=== PATIENT | female | born 1995 | race Asian ===

== ENCOUNTER 2020-01-09 15:16 | Emergency (ER) | payer SELFPAY ==
[~2020-01-09] VITALS: Ht 165.1 cm; Wt 59.0 kg
[~2020-01-09 15:16] MED LIST: MOTRIN 800800 MG/TAB PO; NATURAL IRON65 MG; PERCOCET 325 MG1 TA2 PO; PRENATAL VITAMI1 TA3 PO; TYLENOL 325MG325 MG PO
[2020-01-09 15:29] VITALS: TEMP 98.3
[2020-01-09] MEDS ORDERED: AZO URINARY PAI95 MG (16:38)
[2020-01-09 16:49] LABS: COLLECTION METHOD CLEAN CATCH
[2020-01-09 16:58] LABS: MUCOUS Present /lpf; PH 5 (5-8); SQUAMOUS EPITHELIAL 0-2 /hpf; URINE APPEARANCE Cloudy; URINE BACTERIA Rare /hpf; URINE BILIRUBIN Negative (NEGATIVE); URINE BLOOD 3+ (NEGATIVE); URINE COLOR Amber; URINE GLUCOSE Negative (NEGATIVE); URINE KETONE Negative (NEGATIVE); URINE LEUKOCYTE ESTERASE 2+ (NEGATIVE); URINE NITRATE Negative (NEGATIVE); URINE PROTEIN(semi-quant) 2+ (NEGATIVE); URINE RBC >50 /hpf; URINE UROBILINOGEN Negative (NEGATIVE)
[2020-01-09] MEDS ORDERED: PYRIDIUM 100MG100 MG PO ×2 (18:30)
[2020-01-09] MEDS ORDERED: CEFTIN500 MG PO ×2 (18:30)
[2020-01-09 19:05] VITALS: BP 119/65; PULSE 87
[2020-01-10] MEDS ORDERED: PYRIDIUM 100MG100 MG PO (13:05)
[2020-01-10] MEDS ORDERED: CEFTIN500 MG PO (13:05)
== END 2020-01-09 19:05 | disposition home or self-care (01) ==
LOC: COL.ER 15:16
PROVIDERS: Emergency Medicine
DX: N39.0 Urinary tract infection, site not specified (principal); F17.210 Nicotine dependence, cigarettes, uncomplicated

== ENCOUNTER 2020-08-01 22:38 | Emergency (ER) | payer SELFPAY ==
[~2020-08-01] VITALS: Ht 165.1 cm; Wt 62.0 kg
[~2020-08-01 22:38] MED LIST changes: +AZO URINARY PAI95 MG; +CEFTIN500 MG PO; +PYRIDIUM 100MG100 MG PO
[2020-08-02 00:25] LABS: BASO % 0.4 % (0.0-2.0); GRAN # 3.8 (1.4-6.5); GRAN % 79.6 % (42.2-75.2); HEMATOCRIT 39.6 % (37.0-47.0); HEMOGLOBIN 13.2 g/dl (12.5-16.0); LYMPH # 0.6 (1.2-3.4); LYMPH % 13.2 % (20.0-51.0); MEAN CELL VOLUME 87 fl (80.0-100.0); MEAN CORPUSCULAR HEMOGLOBIN 29 pg (27.0-31.0); MEAN CORPUSCULAR HGB CONC 33 g/dl (33.0-37.0); MEAN PLATELET VOLUME 9.8 fl (7.4-10.4); MONO # 0.3 (0.1-0.6); MONO % 6.4 % (1.7-9.3); PLATELET COUNT 250 K/mm3 (130-400); RED BLOOD COUNT 4.55 M/mm3 (4.10-5.30); REDCELL DISTRIBUTION WIDTH-CV 12.5 % (11.5-14.5)
[2020-08-02 00:34] LABS: MUCOUS Present /lpf; PH 5 (5-8); SQUAMOUS EPITHELIAL 0-2 /hpf; URINE APPEARANCE Clear; URINE BACTERIA None Seen /hpf; URINE BILIRUBIN Negative (NEGATIVE); URINE BLOOD Negative (NEGATIVE); URINE COLOR Straw; URINE GLUCOSE Negative (NEGATIVE); URINE KETONE Negative (NEGATIVE); URINE LEUKOCYTE ESTERASE Negative (NEGATIVE); URINE NITRATE Negative (NEGATIVE); URINE PROTEIN(semi-quant) Negative (NEGATIVE); URINE RBC 0-2 /hpf; URINE UROBILINOGEN Negative (NEGATIVE); URINE WBC 0-2 /hpf
[2020-08-02 00:35] LABS: ALANINE AMINOTRANSFERASE 33 U/L (4-34); ALBUMIN 4.1 gm/dL (3.5-5.0); ALKALINE PHOSPHATASE 37 U/L (50-136); ANION GAP 9 mmol/L (7-16); AST,SGOT 29 U/L (15-37); BILIRUBIN,TOTAL 0.4 mg/dL (0.0-1.0); BLOOD UREA NITROGEN 11 mg/dL (7-17); CALCIUM 8.3 mg/dL (8.4-10.2); CARBON DIOXIDE 21 mmol/L (22-30); CHLORIDE 106 mmol/L (98-107); CREATININE, serum 0.74 (0.52-1.25); GLUCOSE 96 mg/dL (74-106); LIPASE 54 U/L (23-300); POTASSIUM 3.4 mmol/L (3.4-5.0); SODIUM 136 mmol/L (137-145); TOTAL PROTEIN 7.1 gm/dL (6.4-8.2)
[2020-08-02 00:47] LABS: TROPONIN-I < 0.012 ng/mL (0.000-0.035)
[2020-08-02 00:59] LABS: COLLECTION METHOD CLEAN CATCH
[2020-08-02] MEDS ORDERED: MOTRIN 400400 MG/TAB PO (02:43)
[2020-08-02] MEDS ORDERED: ZOFRAN ODT4 MG PO (02:43)
[2020-08-02] MEDS ORDERED: TYLENOL 325MG325 MG PO (02:43)
[2020-08-02 03:35] VITALS: BP 92/50; PULSE 98; TEMP 98.7
== END 2020-08-02 03:46 | disposition home or self-care (01) ==
LOC: COL.ER 22:38
PROVIDERS: Emergency Medicine
DX: R19.7 Diarrhea, unspecified (principal); R50.9 Fever, unspecified; Z20.822 Contact with and (suspected) exposure to COVID-19
CPT/HCPCS: J2405; J7030